=== PATIENT | female | born 1975 | race Caucasian/White ===

== ENCOUNTER → 2019-01-30 | Outpatient (CLI) | payer OTHER ==
[~2019-01-30] MED LIST: DULO30CA2 PO; METF850T8 PO; METH54TA5 PO; PHEN37.598 PO; SPIR100T4 PO
[2019-01-30 15:21] LABS: BASO # 0.1 x10^3/uL (0.0-0.2); BASO % 1 % (0-3); EOS # 0.1 x10^3/uL (0.0-0.7); EOS % 1 % (0-3); HEMATOCRIT 39.6 % (36.0-47.0); HEMOGLOBIN 13.1 g/dL (12.0-15.5); LYMPH # 2.4 x10^3/uL (1.0-4.8); LYMPH % 19 % (24-48); MEAN CORPUSCULAR HEMOGLOBIN 28 pg (25-35); MEAN CORPUSCULAR HGB CONC 33 g/dL (31-37); MEAN CORPUSCULAR VOLUME 84 fL (79-100); MONO # 0.8 x10^3/uL (0.0-1.1); MONO % 7 % (0-9); NEUT # 9.1 x10^3uL (1.8-7.7); NEUT % 72 % (31-73); PLATELET COUNT 346 x10^3/uL (140-400); RED BLOOD COUNT 4.74 x10^6/uL (3.50-5.40); RED CELL DISTRIBUTION WIDTH 14.8 % (11.5-14.5); WHITE BLOOD COUNT 12.5 x10^3/uL (4.0-11.0)
[2019-01-30 15:22] LABS: BILIRUBIN,URINE NEGATIVE (NEG); CLARITY,URINE CLEAR; COLOR,URINE YELLOW; NITRITE,URINE NEGATIVE (NEG); PROTEIN,URINE NEGATIVE (NEG-TRACE)
[2019-01-30 15:34] LABS: SQUAMOUS EPITHELIAL CELL,UR MANY /LPF
[2019-01-30 15:36] LABS: BACTERIA,URINE FEW /HPF (0-FEW)
[2019-01-30 16:26] LABS: ALBUMIN 4.2 g/dL (3.4-5.0); CALCIUM 9.9 mg/dL (8.5-10.1); CREATININE 0.9 mg/dL (0.6-1.0); GFR 68.7; POTASSIUM 4.5 mmol/L (3.5-5.1); TOTAL BILIRUBIN 0.2 mg/dL (0.2-1.0); TOTAL PROTEIN 8.4 g/dL (6.4-8.2)
--- NOTE | 2019-01-31 18:00 | NUR ---
FAXED PRE - OP LAB & UA REPORTS TO 'S OFFICE AT 0421 AND RECEIVED TRANSMITTAL CONFIRMATION.UA ABNORMAL AWAITING CULTURE'S FINAL REPORT.
--- NOTE | 2019-02-04 19:08 | NUR ---
FAXED URINE CULTURE'S FINAL REPORT TO AT 1987 02/04/2019 AND RECEIVED TRANSMITTAL CONFIRMATION.
== END | disposition home or self-care (01) ==
LOC: SURGPAT 14:33
PROVIDERS: ATTEND Obstetrics & Gynecology
DX: Z01.818 Encounter for other preprocedural examination (principal)
CPT/HCPCS: 36415; 80053; 81001; 85025; 87086

== ENCOUNTER 2019-02-07 07:00 | Observation (INO) | payer OTHER ==
[~2019-02-07] VITALS: Ht 170.2 cm; Wt 97.0 kg
[~2019-02-07 07:00] MED LIST changes: +BUPIVACAINE-EPI 0.25%-1:200000 MPF 30 ML VIAL. ONE; +ESTROGENS, CONJ VAGINAL CREAM 30GM TUBE. ONE; +HYDROmorphone 2 MG/ML VIAL IV PRN; +ISOSULFAN BLUE 50 MG/5 ML VIAL. SQ ONE; +IV RINGERS,LACTATED 1000ML 1,000 ML IV SCH; +LIDOCAINE 1% PF 2 ML VIAL. ID PRN; +METHYLENE BLUE 1% 10 ML VIAL. ONE; +MORPHINE SULFATE 2 MG/ML VIAL. IV PRN; +ONDANSETRON PF 4 MG/2 ML VIAL. IV PRN; +PROCHLORPERAZINE 10 MG/2 ML VIAL. IV PRN; +fentaNYL PF VIAL 100 MCG/2 ML VIAL IV PRN
[2019-02-07] MEDS ORDERED: SCOPOLAMINE 1.5MG PATCH. TD SCH (08:00)
[2019-02-07 08:11] LABS: U PREG PATIENT NEGATIVE (NEG)
[2019-02-07] MEDS ORDERED: MIDAZOLAM HCL/PF 2 MG/2 ML VIAL. ONE (08:30)
[2019-02-07] MEDS ORDERED: fentaNYL PF VIAL 250 MCG/5 ML VIAL ONE (08:30)
[2019-02-07] MEDS ORDERED: ROCURONIUM 50 MG/5 ML VIAL. ONE (08:31)
[2019-02-07] MEDS ORDERED: DULoxetine HCL 30 MG CAPSULE.DR PO SCH (09:00)
[2019-02-07] MEDS ORDERED: DEXAMETHASONE SOD PHOS 4 MG/ML VIAL ONE ×2 (09:07)
[2019-02-07] MEDS ORDERED: ONDANSETRON PF 4 MG/2 ML VIAL. ONE (09:08)
[2019-02-07] MEDS ORDERED: GLYCOPYRROLATE 1 MG/5 ML VIAL. ONE (09:41)
[2019-02-07] MEDS ORDERED: NEOSTIGMINE METHYLSULFATE 5 MG/5 ML SYRINGE. ONE (09:41)
[2019-02-07] MEDS ORDERED: SEVOFLURANE > 120 MINUTES. IH ONE (10:46)
[2019-02-07] MEDS ORDERED: fentaNYL PF VIAL 100 MCG/2 ML VIAL ONE ×2 (10:55→11:36)
[2019-02-07] MEDS ORDERED: PROCHLORPERAZINE 10 MG/2 ML VIAL. ONE (10:55)
[2019-02-07] MEDS: fentaNYL PF VIAL 100 MCG/2 ML VIAL IV PRN ×4 (10:58→11:50)
--- NOTE | 2019-02-07 10:58 | PDOC ---
BRIEF OPERATIVE NOTE Date: Feb 07, 2019 Pre-Op Diagnosis menorrhagia Post-Op Diagnosis same Procedure Performed LAVH with bilateral salpingectomy Surgeon Dr. Lucille Montemayor Cook Taco ADDIE Casey Anesthesiologist Dr. Landin Anesthesia Type: General Blood Loss 100cc IV Fluid 1300cc Urine Output 140cc clear via kumar Specimens Obtained cervix, uterus, bilateral tubes Findings tubes with evidence of prior tubal ligation, mild adhesions of sidewall/bladder, normal bilateral ovaries Complications none Operative Note [id number] LUCILLE MONTEMAYOR MD Feb 07, 2019 10:58
[2019-02-07] MEDS ORDERED: MAGNESIUM HYDROXIDE 2,400 MG/30 ML ORAL.SUSP. PO PRN (11:00)
[2019-02-07] MEDS ORDERED: NALOXONE 0.4 MG/ML VIAL. IV PRN (11:00)
[2019-02-07] MEDS ORDERED: MORPHINE SULFATE 2 MG/ML VIAL. IV PRN (11:00)
[2019-02-07] MEDS ORDERED: CALCIUM CARBONATE 500 MG TAB.CHEW PO PRN (11:00)
[2019-02-07] MEDS ORDERED: ZOLPIDEM 5 MG TABLET. PO PRN (11:00)
[2019-02-07] MEDS ORDERED: ONDANSETRON PF 4 MG/2 ML VIAL. IV PRN (11:00)
[2019-02-07] MEDS ORDERED: MAG HYDROX/ALUMINUM HYD/SIMETH 30 ML ORAL.SUSP PO PRN (11:00)
[2019-02-07] MEDS ORDERED: diphenhydrAMINE HCL 25 MG CAPSULE PO PRN (11:00)
[2019-02-07] MEDS ORDERED: LACTULOSE 20 GM/30 ML SOLUTION. PO PRN (11:00)
[2019-02-07] MEDS ORDERED: diphenhydrAMINE 50 MG/ML VIAL IV PRN (11:00)
[2019-02-07] MEDS ORDERED: SIMETHICONE 80 MG TAB.CHEW PO PRN (11:00)
[2019-02-07] MEDS ORDERED: 0.9 % SODIUM CHLORIDE 10 ML DISP.SYRIN. IV PRN (11:00)
[2019-02-07] MEDS ORDERED: ceFAZolin 2GM PREMIX 2 GM/50 ML BAG IV ONE (11:00)
--- NOTE | 2019-02-07 11:13 | OP ---
DATE OF SURGERY: 02/07/2019 PREOPERATIVE DIAGNOSES: Menorrhagia. POSTOPERATIVE DIAGNOSES: Menorrhagia PROCEDURE: Laparoscopic-assisted vaginal hysterectomy with bilateral salpingectomy. SURGEON: Alexander Conley M.D. ADDRESS CHANGE CLERK: Елена Cannon. ANESTHESIOLOGIST: Dr. Landin. ANESTHESIA: General. ESTIMATED BLOOD LOSS: 100 mL. URINE OUTPUT: 140 mL clear via Steve catheter. INTRAVENOUS FLUIDS: 1300 mL of Crystalloid. SPECIMENS: Cervix, uterus, bilateral tubes. FINDINGS: Mildly enlarged uterus, tubes with evidence of prior tubal ligation. Mild adhesions of the left sidewall and left tube, normal bilateral ovaries. COMPLICATIONS: None. DESCRIPTION OF PROCEDURE: This patient was taken to the operating room where general anesthesia was placed. The patient was placed in [facility] The patient's abdomen and vagina were prepped and draped in the normal sterile fashion and a Steve catheter had been inserted under sterile technique. Upon my arrival, a timeout was performed. Once everyone agreed and she had received her preoperative antibiotics, a bivalve speculum was placed in the patient's vagina. A single-tooth tenaculum was used to grasp the anterior lip of the cervix. A 10 mL of 0.25% Marcaine with epinephrine was used to circumferentially inject around the cervix for both hemodissection and hemostatic purposes later. At this point, the bivalve speculum was removed. Top gloves were discarded and changed and attention was turned to the abdomen. Top gloves were discarded and changed. Supraumbilical skin incision was made with the scalpel over an existing scar likely from her prior cholecystectomy. A curved Anisha was used to dissect through the subcuticular layer to the fascia. The 5 mm Visiport was used to directly enter the abdominal cavity. Opening patient pressure was 4-5 mmHg. Carbon dioxide gas was used to then appropriately insufflate the abdominal cavity to maintain a pressure of 15 mmHg. The patient was placed in Trendelenburg position and right and left lower quadrant ports were placed under direct visualization. There were no adhesions on the anterior abdominal wall, finding an area clear of any vasculature transilluminating the abdominal wall, making a small incision and placing the 5 mm disposable atraumatic trocar under direct visualization. Once these were in 3-4 mL of air was placed in the cuffs of those. The camera was then moved to look at the umbilical port as well and it was clear and it was insufflated as well. At this point, the right tube and ovary were elevated, going below the tube above the ovary, doing a salpingectomy crossing the right uterine ovarian pedicle. This was all done with the LigaSure, cauterizing and cutting, then crossing the right round ligament. This was done exactly the same on the left, elevating the left tube and ovary going below the tube above the ovary as the patient wished to retain ovaries, doing a salpingectomy cauterizing and cutting, then going between the uterus and ovary on the left, across the uterine-ovarian pedicle and the left round ligament. The bladder flap was then created sharply from the right side over and then the adhesion was taken down once the bladder was assured to be down on the left side as well. Once this was done, the uterine vessels were obtained on both sides and the uterus began to piyush going down hugging the cervix through the cardinal and broad ligaments again cauterizing and cutting the hallway with the LigaSure, hugging and staying right on the uterus. Once this was done, the posterior cul-de-sac was completely free. The uterus was blanched. The blood supply was obtained and all instruments were removed and attention was turned vaginally. The single tooth and Valtchev were removed. A weighted speculum was placed in the patient's vagina. Thyroid Roxana clamps were placed on the anterior and posterior lips of the cervix respectively. A circumferential incision was made with the scalpel on the cervix. An open Ray-Camilo 4 x 4 was used to gently push up the anterior bladder peritoneum. The posterior cul-de-sac was sharply entered with curved Pabon scissors. A #0 Vicryl stitch was used to secure the posterior peritoneum here to the vaginal cuff. It was tagged with a curved Anisha clamp and the needle was cut and passed off. The short weighted speculum was removed and replaced with the long weighted Gabe speculum in the posterior cul-de-sac. Curved Joe clamps x 2 were placed on the patient's left uterosacral ligament where they were doubly clamped with curved Heaneys, cut with Pabon scissors and suture ligated x 2 with 0 Vicryl. Second one was taken through the vaginal cuff securing uterosacral ligament to the vaginal cuff, tagging it with a straight Anisha clamp and cutting and passing the needle off. This was done exactly the same on the right side, double clamping the uterosacrals with curved Joe's, cutting with Pabon scissors and suture ligating x 2 with 0 Vicryl, taking the second one through the vaginal cuff and tagging it and cutting the needle off. Once this was all done, the anterior peritoneum was still had an attachment. I came from the back around. Once that was free, the cervix, uterus, bilateral tubes were delivered in toto and passed off for permanent pathology. Both uterosacral pedicles were examined and cauterized with the vaginal LigaSure. Sponge stick was used to examine the pedicles and they were hemostatic. The anterior Ray-Camilo was removed from the cul-de-sac. A long Allis was used to grasp the anterior bladder peritoneum, 2-0 Vicryl was taken through the anterior bladder peritoneum, left uterosacral ligament, posterior peritoneum and right uterosacral ligament, thus closing the peritoneum in a pursestring like fashion. Once this was done, the right and left uterosacral tags were clipped. The cuff was closed in an anterior to posterior running locked fashion and tied to the posterior cuff tag. One interrupted stitch was placed just for hemostasis. Once this was all assured and the cuff was dry, all gloves were discarded and changed. All instruments were counted x 2 by OR personnel before going above. At this point, the patient was placed back in Trendelenburg. Gas was reinsufflated. All gloves were discarded and changed and we looked back above. Copious irrigation revealed hemostasis. Tisseel was placed over all the cuffs and pedicles with excellent results. The right and left lower quadrant ports, the balloons were deflated they were removed under direct visualization. These too were hemostatic. The cuff remained dry. The air was taken out of the cuff on the umbilical port. The gas was released from here. Once it was removed, all three port sites were closed with Monocryl and Steri-Strips at the skin. All sponge, lap and needle counts were correct x 2 by all OR personnel. The patient was awakened from general anesthesia and brought to recovery room in stable condition. ALEXANDER CONLEY MD DR: BC/barrington JOB#: [id number] / [id number]
[2019-02-07 12:22] VITALS: BP 100/52
[2019-02-07 12:45] VITALS: BP 95/48
[2019-02-07 13:00] VITALS: BP 96/52
[2019-02-07] MEDS: KETOROLAC 30 MG/ML VIAL. IV PRN ×2 (13:12→21:05)
[2019-02-07 13:15] VITALS: BP 114/67
[2019-02-07] MEDS: oxyCODONE/APAP 5/325 1 TAB TABLET PO PRN ×2 (14:07→18:01)
[2019-02-07 17:15] VITALS: BP 96/52
[2019-02-07 20:52] VITALS: BP 108/65
[2019-02-07] MEDS: HYDROcodone/APAP 5/325MG 1 TAB TABLET PO PRN (22:08)
[2019-02-08 06:18] LABS: CALCIUM 9.2 mg/dL (8.5-10.1); CREATININE 0.8 mg/dL (0.6-1.0); GFR 78.7; POTASSIUM 4.6 mmol/L (3.5-5.1)
[2019-02-08] MEDS: KETOROLAC 30 MG/ML VIAL. IV PRN (06:20)
[2019-02-08 06:28] VITALS: BP 105/53
[2019-02-08] MEDS ORDERED: metFORMIN 850 MG TABLET PO SCH (08:00)
--- NOTE | 2019-02-08 08:37 | PDOC ---
SURGICAL PROGRESS NOTE Subjective Doing well without complaints. Voiding without catheter, tolerating regular diet, ambulating well. Wants to go home. Scant VB Vital Signs Vital Signs Date Time Temp Pulse Resp B/P (MAP) Pulse Ox O2 Delivery O2 Flow Rate FiO2 02/08/19 06:28 97.5 78 18 105/53 (70) 97 Room Air 97.5 02/07/19 11:20 6 I&O Intake and Output 02/08/19 06:59 Intake Total 1850 ml Output Total 550 ml Balance 1300 ml Intake Oral 500 ml IV Total 1350 ml Output Urine Total 550 ml # Voids 2 PATIENT HAS A BETHEA: No General: Alert, Oriented X3, Cooperative, No acute distress HEENT: Atraumatic Heart: Regular rate Abdomen: Soft, No tenderness, No masses, Other (all port sites c/d/i) Extremities: No clubbing, No cyanosis, No edema, No tenderness/swelling Skin: No rashes, No breakdown Neuro: Normal speech Psych/Mental Status: Mental status NL, Mood NL Labs Laboratory Tests Test 02/07/19 08:00 02/08/19 04:47 Urine Test Negative (NEG) Hematocrit 35.0 % (36.0-47.0) Sodium Level 135 mmol/L (136-145) Potassium Level 4.6 mmol/L (3.5-5.1) Chloride Level 98 mmol/L (98-107) Carbon Dioxide Level 28 mmol/L (21-32) Anion Gap 9 (6-14) Blood Urea Nitrogen 9 mg/dL (7-20) Creatinine 0.8 mg/dL (0.6-1.0) Estimated GFR (Cockcroft-Gault) 78.7 Glucose Level 132 mg/dL (70-99) Calcium Level 9.2 mg/dL (8.5-10.1) Laboratory Tests Test 02/08/19 04:47 Hematocrit 35.0 % (36.0-47.0) Sodium Level 135 mmol/L (136-145) Potassium Level 4.6 mmol/L (3.5-5.1) Chloride Level 98 mmol/L (98-107) Carbon Dioxide Level 28 mmol/L (21-32) Anion Gap 9 (6-14) Blood Urea Nitrogen 9 mg/dL (7-20) Creatinine 0.8 mg/dL (0.6-1.0) Estimated GFR (Cockcroft-Gault) 78.7 Glucose Level 132 mg/dL (70-99) Calcium Level 9.2 mg/dL (8.5-10.1) I have reviewed the following labs, vitals nursing Cardiovascular: No pertinent hx Pulmonary: No pertinent hx GI: No pertinent hx Heme/Onc: No pertinent hx Psych: No pertinent hx ENT: No pertinent hx Renal/: No pertinent hx Endocrine: No pertinent hx Dermatology: No pertinent hx Assessment/Plan POD#1 s/p LAVH with bilateral salpingectomy Routine PO Care NPV x 6 weeks light/limited activity x 2 weeks already has pain pills filled at home OK for OTC ibuprofen as needed NO driving while on narcotics call or return sooner for any other questions or concerns not limited to but including pain unrelieved with pain meds, increased or unexplained vaginal bleeding or T>100.4 ALEXANDER CONLEY MD Feb 08, 2019 08:37
--- NOTE | 2019-02-08 08:39 | PDOC3 ---
Discharge Summary Visit Information Date of Admission: Feb 07, 2019 Date of Discharge: Feb 08, 2019 Final Diagnosis menorrhagia Brief Hospital Course Allergies Allergies Coded Allergies Type Severity Reaction Last Updated Verified No Known Drug Allergies 01/30/19 No Vital Signs Vital Signs Date Time Temp Pulse Resp B/P (MAP) Pulse Ox O2 Delivery O2 Flow Rate FiO2 02/08/19 06:28 97.5 78 18 105/53 (70) 97 Room Air 97.5 02/07/19 11:20 6 Lab Results Laboratory Tests Test 02/07/19 08:00 02/08/19 04:47 Urine Test Negative (NEG) Hematocrit 35.0 % (36.0-47.0) Sodium Level 135 mmol/L (136-145) Potassium Level 4.6 mmol/L (3.5-5.1) Chloride Level 98 mmol/L (98-107) Carbon Dioxide Level 28 mmol/L (21-32) Anion Gap 9 (6-14) Blood Urea Nitrogen 9 mg/dL (7-20) Creatinine 0.8 mg/dL (0.6-1.0) Estimated GFR (Cockcroft-Gault) 78.7 Glucose Level 132 mg/dL (70-99) Calcium Level 9.2 mg/dL (8.5-10.1) Laboratory Tests Test 02/08/19 04:47 Hematocrit 35.0 % (36.0-47.0) Sodium Level 135 mmol/L (136-145) Potassium Level 4.6 mmol/L (3.5-5.1) Chloride Level 98 mmol/L (98-107) Carbon Dioxide Level 28 mmol/L (21-32) Anion Gap 9 (6-14) Blood Urea Nitrogen 9 mg/dL (7-20) Creatinine 0.8 mg/dL (0.6-1.0) Estimated GFR (Cockcroft-Gault) 78.7 Glucose Level 132 mg/dL (70-99) Calcium Level 9.2 mg/dL (8.5-10.1) Brief Hospital Course Ms. Balderas is a 43 old female who presented with menorrhagia and desires definitive therapy. She underwent LAVH with bilateral salpingectomy without complications. She is voiding without catheter, ambulating well, tolerating regular diet without N/v and desiring to go home Discharge Information Condition at Discharge: Improved Follow Up: Weeks Disposition/Orders: D/C to Home Scheduled Duloxetine Hcl (Cymbalta) 30 Mg Capsule.dr, 30 MG PO DAILY for DEPRESSION, (Reported) Entered as Reported by: PALMER DE LA FUENTE on 01/30/191456 Last Taken: Unknown Dose on 02/06/19 1700 Last Action: Continued on 02/07/19830 by ALEXANDER CONLEY Metformin Hcl (Metformin Hcl) 850 Mg Tablet, 850 MG PO DAILYWBKFT for ANTI- DIABETIC, Ref 0 (Reported) Entered as Reported by: PALMER DE LA FUENTE on 01/30/191456 Last Action: Continued on 02/07/19830 by ALEXANDER CONLEY Methylphenidate Hcl (Concerta) 54 Mg Tab.er.24, 54 MG PO DAILY for N, (Reported) Entered as Reported by: PALMER DE LA FUENTE on 01/30/191456 Last Taken: Unknown Dose on 02/05/19 Last Action: HELD on 02/07/19830 by ALEXANDER CONLEY Spironolactone (Spironolactone) 100 Mg Tablet, 100 MG PO BID for DIURETIC, (Reported) Entered as Reported by: PALMER DE LA FUENTE on 01/30/191456 Last Action: HELD on 02/07/19830 by ALEXANDER CONLEY Patient Instructions Patient Instructions POD#1 s/p LAVH with bilateral salpingectomy Routine PO Care NPV x 6 weeks light/limited activity x 2 weeks already has pain pills filled at home OK for OTC ibuprofen as needed NO driving while on narcotics call or return sooner for any other questions or concerns not limited to but including pain unrelieved with pain meds, increased or unexplained vaginal bleeding or T>100.4 ALEXANDER CONLEY MD Feb 08, 2019 08:39
[2019-02-08 10:00] VITALS: BP 102/62
[2019-02-08] MEDS: HYDROcodone/APAP 5/325MG 1 TAB TABLET PO PRN (10:00)
--- NOTE | 2019-02-11 16:05 | PATHOLOGY ---
[facility] Accession Number: [id number] . 01 Material submitted: . uterus - UTERUS,CERVIX AND BILATERAL FALLOPIAN TUBES. Modifiers: bilateral . 01 Clinician provided ICD-10: . 01 Clinical history: . Menorrhagia . 02 Diagnosis: Uterus and bilateral fallopian tubes, hysterectomy and bilateral salpingectomy: - Cervix with mild chronic inflammation, squamous metaplasia, nabothian cysts, and focal ulceration. - Proliferative phase endometrium. - Myometrium with leiomyomata, up to 0.9 cm, and focal adenomyosis. - Right fallopian tube with simple paratubal cyst. - Left fallopian tube with no significant histopathologic diagnosis. (SKM/db; 02/11/2019) LBQ/02/11/2019 . 02 Electronically signed: . Augustus Kim MD, Pathologist NPI- [id number] . 01 Gross description: . The specimen is received in formalin, labeled " Balderas, Kandice, uterus, cervix, bilateral fallopian tubes" is an unopened, pyriform uterus weighing 124 g with attached right fimbriated fallopian tube measuring 8.0 cm in length with an average 0.3 cm diameter and a detached fimbriated fallopian tube measures 7.0 cm in length with an average 0.3 cm diameter. Both the fallopian tubes are previously ligated filled The serosa is smooth and morales-brown. The anterior paracervical soft tissue is inked blue. The ectocervix has a surface diameter of 3.5 x 3.0 cm and a 1.7 cm slit-like external os. The anterior ectocervical mucosa is morales-brown, indurated and hemorrhagic and the posterior glistening, morales-pink, hyperemic. The 3.5 cm long x 1.0 cm wide endocervical canal is covered with a corrugated morales-pink mucosa. The endometrial cavity is triangular, 5.0 cm long x 3.0 cm wide, and covered with red-morales (color) endometrium of 0.2 cm thickness. There are no polyps or masses. There are five intramural nodules ranging 0.2 x 0.2 cm to 1.0 x 0.9 x 0.8 cm with morales-pink whorled and trabecular cut surfaces. Majority of these nodules are on the anterior and smallest on the posterior myometrium. There are 2 anterior nodules that possibly shows central degeneration. The morales-pink, mildly trabeculated myometrium is 2.2 cm thick. Both the right and left fallopian tubes have a pink-morales, smooth serosal surface. The fimbriae are normal in configuration. There is a 1.4 x 1.2 x 1.0 cm clear fluid-filled cyst attached to the right fallopian tube serosa. The lumen is patent throughout. [employer] tissue submitted as follows: A1-A2. Anterior cervix 11:00 to 1:00. A3. Posterior cervix. A4-A5. Anterior endomyometrium, including nodules from lower uterine segment to fundus. A6-A7. Posterior endomyometrium, A6 = posterior nodule, from fundus to lower uterine segment. A8. Anterior nodules. A9. Right fallopian tube. A10. Right fallopian tube cyst. A11. Left fallopian tube. ([facility]; 02/07/2019) SHS/SHS . 02 Pathologist provided ICD-10: N72, D25.9, N80.0, N83.8 . 02 CPT . 918823 Specimen Comment: A courtesy copy of this report has been sent to Specimen Comment: [phone]. Specimen Comment: Report sent to Performed at: 01 [facility] [address], [place], [place] [id number] MD Saji Elizabeth MD Phone: [phone] Performed at: 02 [facility] [address], [place] [id number] MD Jaciel Patel MD Phone: [phone]
== END 2019-02-08 11:35 | disposition home or self-care (01) ==
LOC: SURG 07:00 → EDUNIT# 08:30 → 3 NORTH 11:15
PROVIDERS: ADMIT Obstetrics & Gynecology; ATTEND Obstetrics & Gynecology
DX: N92.0 Excessive and frequent menstruation with regular cycle (principal); N94.6 Dysmenorrhea, unspecified; E28.2 Polycystic ovarian syndrome; E27.8 Other specified disorders of adrenal gland; Z90.49 Acquired absence of other specified parts of digestive tract; Z98.51 Tubal ligation status
CPT/HCPCS: 36415; 58550; 80048; 81025; 85014; 86850; 86900; 86901; 88307; 96374; 96376; A7015; G0378; G0379; J0696; J0780; J1100; J1885; J2250; J2710; J3010; J3490; J7030; J7120; J2405; Q9968